=== PATIENT | female | born 1975 | race Two or more races ===

== ENCOUNTER → 2018-05-24 | Emergency (ER) | payer OTHER ==
[~2018-05-24] VITALS: Ht 160 cm; Wt 68.5 kg
[~2018-05-24] MED LIST: CLONAZEPAM0.5 M1; EFFEXOR XR150 MG; PLAQUINIL; PNEU16DI2
== END | disposition left against medical advice (07) ==
LOC: ER 18:57
DX: Z53.20 Procedure and treatment not carried out because of patient's decision for unspecified reasons (principal)

== ENCOUNTER 2022-06-28 06:05 | Day surgery (SDC) | payer OTHER ==
[~2022-06-28 06:05] MED LIST changes: +PROTONIX40 M1 PO
== END 2022-06-28 10:15 | disposition home or self-care (01) ==
LOC: CIR.AMB 06:05
PROVIDERS: ATTEND Surgery Surgery of the Hand
DX: M65.841 Other synovitis and tenosynovitis, right hand (principal); Z20.822 Contact with and (suspected) exposure to COVID-19

== ENCOUNTER 2023-07-05 09:09 | Emergency (ER) | payer OTHER ==
[~2023-07-05] VITALS: Ht 160 cm; Wt 69.9 kg
[2023-07-05] MEDS ORDERED: MEDROL4 MG PO (09:40)
[2023-07-05] MEDS ORDERED: KETOROLAC TROMETHAMINE 30 MG VIAL IM STA (09:49)
[2023-07-05] MEDS ORDERED: MECLIZINE HCL 12.5 MG TABLET PO STA (09:49)
[2023-07-05] MEDS ORDERED: DEXAMETHASONE SODIUM PHOSPHATE 4 MG/ML VIAL IM STA (09:50)
[2023-07-05] MEDS ORDERED: ANTIVERT25 M2 PO (12:03)
== END 2023-07-05 12:11 | disposition home or self-care (01) ==
LOC: ER 09:09
DX: R42 Dizziness and giddiness (principal); M32.8 Other forms of systemic lupus erythematosus